=== PATIENT | male | born 1965 | race Caucasian/White ===

== ENCOUNTER → 2017-01-28 | Outpatient (CLI) | payer MEDICARE ==
[2017-01-29 14:03] LABS: Hazelnut IgE <0.35 kU/L (<0.35); Hazelnut IgE Class CLASS 0; Kiwi IgE <0.35 kU/L (<0.35); Kiwi IgE Class CLASS 0
[2017-01-29 14:04] LABS: Avocado Class CLASS I; Banana IgE Class CLASS I; Cow's Milk IgE Class CLASS 0; Egg White IgE <0.35 kU/L (<0.35); Latex IgE Class CLASS I; Peanut IgE 0.39 kU/L (<0.35); Potato IgE 0.45 kU/L (<0.35); Potato IgE Class CLASS I; Soybean IgE <0.35 kU/L (<0.35)
== END | disposition home or self-care (01) ==
LOC: LABWHC1 09:22
PROVIDERS: ATTEND Otolaryngology
DX: J30.89 Other allergic rhinitis (principal)
CPT/HCPCS: 36415; 86003